=== PATIENT | male | born 1980 | race Caucasian/White ===

== ENCOUNTER 2021-06-12 06:53 | Day surgery (SDC) | payer OTHER ==
[~2021-06-12 06:53] MED LIST: SODIUM CHLORIDE 0.9% 1,000 ML IV SCH
[2021-06-12] MEDS ORDERED: SODIUM CHLORIDE 0.9% 500 ML 500 ML IV ONE (07:10)
[2021-06-12 07:18] VITALS: RESP 16; TEMP 98.1
[2021-06-12 09:56] VITALS: BP 139/88; PULSE 78
--- NOTE | 2021-06-12 19:31 | P.EPPROC ---
- EP Procedure Note Electrophysiology Procedure Note: Diagnosis Recurrent near syncope Twelve-lead EKG shows sinus rhythm normal WA narrow QRS normal ST segments Tilt table test per protocol Baseline blood pressure 126/94 mmHg Baseline heart rate 64 beats a minute Patient was tilted upright at an angle of 70 per protocol normal heart rate and blood pressure response He did feel dizzy but his heart rate was 64 beats a minute at that time in his blood pressure was 138/93 mmHg He is laid supine at the end of the procedure Impression Normal 12-lead EKG Normal heart rate and blood pressure response to upright tilting
== END 2021-06-12 09:57 | disposition home or self-care (01) ==
LOC: CATHEP 06:53
PROVIDERS: ATTEND Internal Medicine Clinical Cardiac Electrophysiology
DX: R55 Syncope and collapse (principal)
CPT/HCPCS: 93660

== ENCOUNTER → 2021-09-24 | Outpatient (CLI) | payer OTHER ==
[2021-09-24 23:15] LABS: Basophils # (A) 0.04 X 10*3/uL (0.00-0.10); Basophils % (A) 0.7 %; Eosinophils # (A) 0.13 X 10*3/uL (0.04-0.35); Eosinophils % (A) 2.4 %; HCT 48.5 % (39.6-50.0); Lymphocytes # (A) 1.45 X 10*3/uL (0.90-5.00); Lymphocytes % (A) 26.3 %; MCH 33.6 pg (27.0-32.0); MCHC 35.1 g/dL (32.0-37.0); MCV 95.8 fL (80.0-97.0); Mean Platelet Volume 9.2 fL (9.5-12.2); Monocytes # (A) 0.62 X 10*3/uL (0.20-1.00); Monocytes % (A) 11.2 %; Neutrophils # (A) 3.22 X 10*3/uL (1.80-7.70); Neutrophils % (A) 58.3 %; Platelet Count 278 X 10*3/uL (140-440); RBC 5.06 X 10*6/uL (4.40-5.60); WBC 5.52 X 10*3/uL (4.50-10.00)
== END | disposition home or self-care (01) ==
LOC: LABWHC1 16:02
PROVIDERS: ATTEND Surgery
DX: K40.90 Unilateral inguinal hernia, without obstruction or gangrene, not specified as recurrent (principal)
CPT/HCPCS: 36415; 85025

== ENCOUNTER 2021-09-29 08:07 | Day surgery (SDC) | payer OTHER ==
[2021-09-23 13:55] VITALS: BMI 32.2
[~2021-09-29 08:07] MED LIST changes: +ACETAMINOPHEN TAB 500 MG TAB PO PRN; +DEXAMETHASONE SOD PHOSPHATE 4 MG/ML 1 ML VIAL IV ONE; +HEPARIN SODIUM,PORCINE/PF 5,000 UNIT/0.5 ML SYRINGE SQ PRN; +LACTATED RINGERS 1,000 ML IV SCH; +LIDOCAINE 1% (10MG/ML) FOR IV START INTRADERMA PRN; +MIDAZOLAM 2 MG/2 ML VIAL IV PRN; +ONDANSETRON 4 MG/2 ML VIAL IVP ONE; -SODIUM CHLORIDE 0.9% 1,000 ML IV SCH
--- NOTE | 2021-09-29 08:40 | P.GSHP ---
History of Present Illness H&P Date: 09/29/21 Chief Complaint: Umbilical hernia, right inguinal hernia 41-year-old male with complaints of a painful bulge in the umbilical region and right groin. Patient initially was also discussing swelling in the upper abdomen that was later found to represent diastases recti. Size of these hernias and discomfort increasing recently. No nausea or vomiting. No change in bowel habits. No prior hernias. Past Medical History Past Medical History: Hypertension History of Any Multi-Drug Resistant Organisms: None Reported Past Surgical History: Orthopedic Surgery Additional Past Surgical History / Comment(s): Left middle finger surgery with pin placed, carpal tunnel right hand. Past Anesthesia/Blood Transfusion Reactions: No Reported Reaction Past Psychological History: Anxiety Smoking Status: Former smoker Past Alcohol Use History: None Reported Additional Past Alcohol Use History / Comment(s): "Quit smoking yrs ago." Past Drug Use History: Marijuana Additional Drug Use History / Comment(s): Marijuana use occasionally. Aware no use 24 hrs prior to procedure. - Past Family History Mother Family Medical History: No Reported History Medications and Allergies Home Medications Medication Instructions Recorded Confirmed Type Escitalopram [Lexapro] 10 mg PO QAM 06/12/21 09/23/21 History Ascorbic Acid [Vitamin C] 1,000 mg PO DAILY 09/23/21 09/23/21 History Vitamin D3 +Zinc 1,000 units PO DAILY 09/23/21 09/23/21 History amLODIPine [Norvasc] 5 mg PO BID 09/23/21 09/23/21 History traMADol HCL 50 - 100 mg PO TID PRN 09/23/21 09/23/21 History traZODone HCL 100 mg PO HS PRN 09/23/21 09/23/21 History Allergies Allergy/AdvReac Type Severity Reaction Status Date / Time No Known Allergies Allergy Verified 09/23/21 13:41 Surgical - Exam Physical exam: General: Well-developed, well-nourished HEENT: Normocephalic, sclerae nonicteric Abdomen: Nontender, nondistended, diastases recti, reducible umbilical hernia, reducible right inguinal hernia, possible small reducible left inguinal hernia Extremities: No edema Neuro: Alert and oriented Assessment and Plan (1) Inguinal hernia Narrative/Plan: 41-year-old male with symptomatic umbilical and right inguinal hernias. Proceed with laparoscopic da Vi assisted repair right inguinal hernia with mesh, possible bilateral, possible open. Simultaneously Will proceed with repair umbilical hernia with possible mesh. Risks of bleeding, infection, recurrence, bladder and bowel injury, numbness, nerve injury, conversion to an open procedure were discussed with the patient. The patient understands and wishes to proceed. Current Visit: Yes Status: Acute Code(s): K40.90 - UNIL INGUINAL HERNIA, W/O OBST OR GANGR, NOT SPCF RECUR OMED Code(s): 010412504
[2021-09-29] MEDS ORDERED: SUGAMMADEX SODIUM 500 MG/5 ML SDV IV ONE (10:41)
[2021-09-29] MEDS ORDERED: ROCURONIUM 10 MG/ML (5 ML VIAL) IV ONE (10:41)
[2021-09-29] MEDS ORDERED: SUCCINYLCHOLINE CHLORIDE 100 MG/5 ML SYR IV ONE (10:41)
[2021-09-29] MEDS ORDERED: NEOSTIGMINE 1 MG/ML 10 ML VIAL ONE (10:41)
[2021-09-29] MEDS ORDERED: KETAMINE 10 MG/ML 20 ML VIAL ONE (10:41)
[2021-09-29] MEDS ORDERED: LIDOCAINE 1% INJ 10MG/ML (20 ML MDV) ONE (10:41)
[2021-09-29] MEDS ORDERED: GLYCOPYRROLATE 0.2 MG/ML 2 ML VIAL ONE (10:41)
[2021-09-29] MEDS ORDERED: fentaNYL (PF) 50 MCG/ML 2 ML AMP ONE (10:41)
[2021-09-29] MEDS ORDERED: PROPOFOL 10 MG/ML 20 ML VIAL IV ONE (10:41)
[2021-09-29] MEDS ORDERED: MIDAZOLAM 2 MG/2 ML VIAL ONE (10:41)
[2021-09-29] MEDS ORDERED: BUPIVACAIN-EPI 0.25%-1:200,000 30 ML VIAL SQ ONE ×2 (11:07)
[2021-09-29] MEDS ORDERED: LACTATED RINGERS 1,000 ML IV ONE (12:03)
--- NOTE | 2021-09-29 12:27 | P.OP ---
Date of Procedure: 09/29/21 Procedure(s) Performed: PREOPERATIVE DIAGNOSIS: Reducible umbilical, reducible right inguinal hernias POSTOPERATIVE DIAGNOSIS: Same PROCEDURE: Laparoscopic da Vi assisted repair right inguinal hernia with mesh, open umbilical hernia repair SURGEON: Dr. Toscano ANESTHESIA: General OPERATIVE PROCEDURE DETAILS: Patient was placed in the operating table in the supine position. The patient was placed under general anesthesia. The abdomen was prepped and draped in usual sterile fashion. A small curvilinear supraumbilical incision was made. The hernia sac was dissected away from the fascia. The defect at the umbilicus was 1 x 1 cm. Through this opening the Veress needle was advanced into the perineal cavity. The saline drop test was normal. Insufflation took place to 15 mmHg. An 8 mm trocar was placed into the peritoneal cavity. 2 additional 8 mm trochars were placed in the right upper quadrant and left upper quadrant under visualization. The robotic arms were then brought in and docked into place. The fenestrated bipolar was used in the left arm and the laparoscopic radha was utilized in the right arm. A 30 8 mm scope was used in the up position. The peritoneal cavity was inspected. The patient had a depression in the peritoneum on the right-hand side that appeared suspicious for a right direct inguinal hernia. No obvious hernia seen on the left-hand side. The right side was only addressed. The peritoneum was incised in a horizontal fashion cephalad to the internal inguinal ring. Following that careful dissection of the preperitoneal space took place. This took place using both electrocautery, sharp dissection but primarily blunt dissection. Visualization of the pubic tubercle and Kirby's ligament took place medially. Full dissection took place laterally as well. The fascia was inspected. There appeared to be a slight protrusion in the direct space. There was definitely no indirect hernia seen. Once we had adequate space the large Bard 3-D mid mesh was advanced into the preperitoneal space and flattened out appropriately to cover all potential hernia sites. No sutures were used. The peritoneal defect was then closed using a absorbable 2-0 VLok suture. The redundant preperitoneal fat was incorporated into the peritoneal closure to help prevent future recurrence. The pneumoperitoneum was then evacuated. The skin of all 3 sites was closed using a 4-0 Monocryl stitch. Skin glue was then applied. HERNIA CHARACTERISTICS: Length: Umbilical 1 cm Width: Umbilical 1 cm Type: Umbilical, inguinal TYPE OF MESH USED: Bard 3-D mid LOCATION OF MESH: Preperitoneal space FIXATION: None DISPOSITION: Stable to recovery room
[2021-09-29] MEDS: HYDROmorphone 0.5 MG/0.5 ML SYRINGE IVP PRN ×2 (12:28→12:36)
[2021-09-29] MEDS ORDERED: ACETAMINOPHEN TAB 325 MG TAB PO SCH (12:30)
[2021-09-29 12:31] VITALS: TEMP 98.5
[2021-09-29 12:34] VITALS: RESP 16
[2021-09-29] MEDS ORDERED: diphenhydrAMINE 50 MG/ML 1 ML VIAL ONE (12:34)
[2021-09-29 14:31] VITALS: BP 137/91; PULSE 86
[2021-09-29] MEDS ORDERED: IBUPROFEN 600 MG TAB PO SCH (15:30)
== END 2021-09-29 14:52 | disposition home or self-care (01) ==
LOC: OR 08:07
PROVIDERS: ATTEND Surgery
DX: K42.9 Umbilical hernia without obstruction or gangrene (principal); K40.90 Unilateral inguinal hernia, without obstruction or gangrene, not specified as recurrent; R00.2 Palpitations; K21.9 Gastro-esophageal reflux disease without esophagitis; F41.9 Anxiety disorder, unspecified; I10 Essential (primary) hypertension; F32.A Depression, unspecified; Z98.890 Other specified postprocedural states; Z87.891 Personal history of nicotine dependence; Z79.899 Other long term (current) drug therapy
CPT/HCPCS: 49585; 49650; S2900